=== PATIENT | male | born 1940 | race Caucasian/White ===

== ENCOUNTER 2018-06-02 11:32 | Inpatient (IN) | payer MEDICARE ==
[~2018-06-02] VITALS: Ht 177.8 cm; Wt 101.2 kg
--- NOTE | ~2018-06-02 | PN ---
[place], [place] PROGRESS NOTE NAME: VANNESA ARIAS UNIT #: [id number] ROOM: 317 DOCTOR: ADÁN AWAN MD BIRTHDATE: [birth year] DATE: 06/06/18 ADDENDUM: Resident note reviewed. Agree with observations, recommendations, and overall treatment plan. ADÁN AWAN MD CM:PNTRANS [id number] ADÁN AWAN MD 07/05/18 1412 DAGOBERTO DIEHL MIS.LLR
--- NOTE | ~2018-06-02 | DS ---
[place], [place] DISCHARGE SUMMARY [id number] UNIT #: [id number] ROOM: 317 DOCTOR: ADÁN AWAN MD BIRTHDATE: [birth year] DOS: 06/08/2018 CHIEF COMPLAINT: "This is a school building. I need to get my keys." HISTORY OF PRESENT ILLNESS: This is a 77-year-old white male who is a resident of [facility] in [place], [place]. The patient was admitted to the Behavioral Unit initially, but transferred to the medical floor following a rapid response for unresponsiveness. The patient subsequently was medically cleared and returned to his baseline medically, but continued to exhibit mood lability with sexually inappropriate behavior and sundowning. The patient was admitted to the U for further psychiatric stabilization. SUMMARY OF HOSPITAL COURSE: The patient was admitted where he was continued on his Exelon patch 13.3 mg a day, Celexa 20 mg a day to decrease libido, and Risperdal 1 mg 3 times a day. Namenda was also maintained at 10 mg twice daily, Seroquel was discontinued as a redundant medicine, and he maintained these medicines during his stay. He exhibited some minor sundowning, but overall there was a steady and gradual trend toward improvement to where he would occasionally make a sexually inappropriate comment, but did not make any significant profane driven comments nor was he touchy feely to any of the patients or staff. The patient had improved to the point where he was pleasant and cooperative. He is not showing signs of sedation, somnolence, extrapyramidal symptoms, or tardive dyskinesia. He returned then back to [facility]. MENTAL STATUS UPON DISCHARGE: The patient is alert and oriented to person, not necessarily to place, certainly not time. Mood was euthymic. Affect appropriate. No nataliia, hypomania, or psychosis were noted. Short-term memory continued to be poor. FINAL DIAGNOSES AT THE TIME OF DISCHARGE: Intermittent explosive disorder, Alzheimer's dementia. PLAN: All of his prescriptions have been e-scribed to [facility]. At the time of discharge, he was medically and psychiatrically stable. I will be the treating psychiatrist upon his readmission to [facility] in [place]. [place], [place] DISCHARGE SUMMARY NAME: VANNESA ARIAS UNIT #: [id number] ROOM: [facility] DOCTOR: ADÁN AWAN MD BIRTHDATE: [birth year] ADÁN AWAN MD CM:MENA [id number] ADÁN AWAN MD 06/08/18 1202 interface
--- NOTE | ~2018-06-02 | WRIGHTHP ---
[place], [place] PATIENT HISTORY AND PHYSICAL EXAM NAME: VANNESA ARIAS UNIT #: [id number] ROOM: 317 DOCTOR: DARREL STATON CNP BIRTHDATE: [birth year] DOS: 06/03/2018 CHIEF COMPLAINT: "This is a school building. I need to get my keys". HISTORY OF PRESENT ILLNESS: This is a 77-year-old white male with a history of Alzheimer's dementia. He had recently been on the Behavioral Health Unit, but was transferred to the medical floor following a rapid response for unresponsiveness. The patient had been medically cleared following a return to baseline and it was decided to readmit him to the Behavioral Health Unit for further evaluation to rule out organic factors and to attempt to stabilize him on his medications. The patient has a history of intermittent explosive disorder. The patient will be encouraged to engage in individual and romero milieu activity. Fall and safety precautions will be followed and will plan to return the patient to the least restrictive environment once psychiatrically stable. PAST MEDICAL HISTORY: Positive for Alzheimer's dementia, benign prostatic hyperplasia, GERD, gout, hyperlipidemia, hypertension, schizoaffective disorder, seizure disorder, vitamin B12 deficiency, vitamin D deficiency. SOCIAL HISTORY: The patient does not drink alcohol. The patient does not smoke and does not use illicit drugs. STRENGTHS: The patient is ambulatory and has a positive support system. WEAKNESSES: Alzheimer, dementia, and poor coping skills. MENTAL STATUS EXAMINATION: The patient is alert and oriented to self only. He was pleasant and cooperative with me. No overt nataliia or hypomania noted. No delusions or paranoia noted. No psychotic symptoms noted. No auditory or visual hallucinations noted. The patient's mood was somewhat labile. He became a bit agitated as he was wanting to look for his car keys and get his car; however, he was able to be easily redirected. His speech was clear. His eye contact was good. His insight and judgment are poor. DIAGNOSES: Alzheimer, dementia, and intermittent explosive disorder. PLAN: To continue the Exelon 13.3 mg patch daily, Celexa 20 mg daily, risperidone 1 mg 3 times a day, Namenda 10 mg twice a day. We will discontinue Seroquel 25 mg 3 times a day. We will continue to monitor the patient's behaviors and how he tolerates the medication. We will continue to encourage the patient to engage in individual and romero milieu activity. We will continue fall and safety precautions. Plan is to return the patient to the least restrictive environment once he is considered psychiatrically stable. [place], [place] PATIENT HISTORY AND PHYSICAL EXAM NAME: VANNESA ARIAS UNIT #: [id number] ROOM: [facility] DOCTOR: DARREL STATON CNP BIRTHDATE: [birth year] Darrel Staton CNP CM:HISPHYS:PATIENT HISTORY AND PHYSICAL EXAMINATION [id number] DARREL STATON CNP 06/03/18 1426 interface
--- NOTE | ~2018-06-02 | PR ---
[place], [place] PROGRESS NOTE NAME: VANNESA ARIAS UNIT #: [id number] ROOM: 317 DOCTOR: ADÁN AWAN MD BIRTHDATE: [birth year] DOS: 06/05/2018 CHIEF COMPLAINT: "Oh, breakfast was really good, thank you." SUMMARY OF THE VISIT: The patient was interviewed in the dining area where he had already eaten his breakfast. He was superficially bright and pleasant and offered no complaints. Nurses report that he continues to have episodes of inappropriate behavior; most occur later in the day. He outwardly is tolerating the current medication regimen well without sedation, somnolence, extrapyramidal symptoms or tardive dyskinesia. MENTAL STATUS: He is alert and oriented to person, possibly place, not to time. Mood does seem to be more euthymic this morning. Affect is more appropriate. There is no nataliia or hypomania and no gross psychosis. Short term memory is problematic. PLAN: I will continue his current psychotropic regimen, monitor for risk, benefit, engage in individual and romero milieu activity, returning to the least restrictive environment when psychiatrically stable. ADÁN AWAN MD CM:PNTRANS [phone] ADÁN AWAN MD 06/06/18 0034 interface
--- NOTE | ~2018-06-02 | PR ---
[place], [place] PROGRESS NOTE NAME: VANNESA ARIAS UNIT #: [id number] ROOM: 317 DOCTOR: GRECIA LY DO BIRTHDATE: [birth year] DOS: 06/06/2018 PSYCHIATRIC PROGRESS NOTE CHIEF COMPLAINT: "Good morning." SUMMARY OF VISIT: The patient is interviewed while sitting in the dining argueta. He states that his breakfast was decent and he had edwards and eggs; however, he states he would like some help finding his jacket. He mentioned that he had his jacket this morning, but not sure where it is now. Per nursing staff, the patient is sexually inappropriate to staff at times. The patient also got up around 10:00 p.m. last night, saying he wanted some popcorn, over although he slept about 6 hours. PLAN: Continue current medication regimen. Continue to monitor and support, engage in individual and romero milieu activity, returning then to the least restrictive environment when psychiatrically stable. Grecai Ly, DO ADÁN AWAN MD CM:CHUCKY [phone] GRECIA LY DO 06/07/18 0621 interface
--- NOTE | ~2018-06-02 | PN ---
[place], [place] PROGRESS NOTE NAME: VANNESA ARIAS UNIT #: [id number] ROOM: 317 DOCTOR: ADÁN AWAN MD BIRTHDATE: [birth year] DATE: 06/07/18 ADDENDUM: Resident note reviewed. Agree with observations, recommendations, and overall treatment plan. ADÁN AWAN MD CM:PNTRANS [id number] ADÁN AWAN MD 07/05/18 1412 DAGOBERTO DIEHL MIS.LLR
--- NOTE | ~2018-06-02 | PR ---
[place], [place] PROGRESS NOTE NAME: VANNESA ARIAS UNIT #: [id number] ROOM: 317 DOCTOR: DARREL STATON CNP BIRTHDATE: [birth year] DOS: 06/04/2018 CHIEF COMPLAINT: "Who are you." SUMMARY OF THE VISIT: The patient was interviewed as he lie in his bed. The patient verbalizes minimally with me. He does report that he slept well last night and that he has a good appetite; however, he does not remember if he had lunch or not. HISTORY OF PRESENT ILLNESS: Staff reports that the patient was exhibiting some increased behaviors this morning and was given a p.r.n. Ativan, which was effective and tolerated well. MENTAL STATUS EXAMINATION: The patient is alert and oriented to himself. He was pleasant with me easily redirected. No overt nataliia or hypomania noted. No delusions or paranoia noted. No psychotic symptoms noted. No auditory or visual hallucinations noted. His mood was calm. No agitation or irritability noted at this time. His affect was appropriate. His insight and judgment are poor. PLAN: We will continue the patient's medications as prescribed. We will continue to monitor and support the patient. We will continue to encourage the patient to engage in individual and romero milieu activity. Continue fall and safety precautions. Plan is to return to the patient to the least restrictive environment once he is considered psychiatrically stable. Darrel Staton CNP CM:PNTRANS [phone] DARREL STATON CNP 06/05/18 0339 interface
--- NOTE | ~2018-06-02 | PR ---
[place], [place] PROGRESS NOTE NAME: VANNESA ARIAS UNIT #: [id number] ROOM: 317 DOCTOR: GRECIA LY DO BIRTHDATE: [birth year] DOS: 06/07/2018 PSYCHIATRIC PROGRESS NOTE CHIEF COMPLAINT: "Morning. I am in [place]." SUMMARY OF VISIT: The patient is interviewed while sitting in the dining argueta. When asked if he slept well, he states I think I did. The patient states he does not need anything right now, but he mentioned he denies and realized he was in [place]. He thought he was in [place]. Per nursing staff, the patient slept about 6-7 hours. He did exhibit some anxiety episode yesterday with fidgeting and scratching his skin, however, he was able to be redirected by staff. He did get an episode of excitement overnight when another resident was singing in the hallway; however, he was able to be redirected and did not exhibit an inappropriate sexual behavior to staff members. MENTAL STATUS EXAMINATION: He is alert and oriented to person, possibly place, not to time. Mood is more euthymic. Affect is more appropriate. There is no nataliia or hypomania or gross psychosis. Short-term memory is poor. PLAN: Continue current medication regimen. We will monitor and support, engage in individual and romero milieu activity, returning then to the least restrictive environment when psychiatrically stable. Grecia Ly, DO ADÁN AWAN MD CM:PNTRANS [id number] GRECIA LY DO 06/07/18 1611 interface
[~2018-06-02 11:32] MED LIST: ASPIRIN CHEWABL81 MG PO; ATIVAN1 MG IM; ATIVAN1 MG PO; CELEXA20 MG PO; DILTIAZEM HCL30 MG PO; EXELON13.3 MG/21 TD; FLOMAX0.4 MG PO; GEODON20 MG PO; MAALOX ADVANCE355 M1 PO; MEMANTINE HCL E28 MG PO; MILK OF MA400 MG/5 M PO; NAMENDA10 MG PO; NITROSTAT0.4 MG SL; OMEPRAZOLE20 M2 PO; PHARMASSURE FO0.8 MG PO; PHARMASSURE VI100 MG PO; REMEDY CALAZIM113 G1 T; RISPERDAL0.5 MG PO; RISPERDAL1 M1 PO; SEROQUEL25 MG PO; TYLENOL325 M2 PO; VITAMIN B-6250 MG PO; VITAMIN D32000 UNI1 PO; ZOCOR40 MG PO
--- NOTE | 2018-06-02 16:58 | NUR ---
FRANKLINVANNESA OHARA a 77 year old M admitted via wheel chair from the ADMITTING as a voluntary admission. Arrived on unit at 1658. ALLERGIES: NKA. Vital signs are: 97.6-94-18 127/86. The client signed the following forms with stated understanding: Authorization For The Release of Medical Information, Clothing List, Consent to Voluntary Admission and Hospitalization, Consent and Release Forms/Receipt of Rights, Acknowledgement of Advance Directive Information, Behavioral Health Consent Form, and Informed Consent of Medications. Admitted under the services of Dr. LV BRADLEYADÁN. A search was conducted and hazardous articles were removed. Client was oriented to the unit. MERT FARR
[2018-06-02 17:08] VITALS: BP 127/86
--- NOTE | 2018-06-02 17:45 | NUR ---
DR. OH NOTIFIED OF NEW ADMISSION, MEDICATIONS AND DIAGNOSIS UPDATED FOR REVIEW. PATIENT WILL BE UNDER THE CARE OF DR. BOJORQUEZ.
--- NOTE | 2018-06-02 18:15 | NUR ---
MERT GERMAIN UPDATED ON PT ADMISSION
[2018-06-02 20:00] VITALS: BP 135/67
--- NOTE | 2018-06-03 04:05 | NUR ---
P-CONFUSION, ST/LT MEMORY DEFICITS I-ASSESS ORIENTATION, REDIRECT AND REORIENT NEEDED. PROVIDE 1:1 FOR PATIENT TO VOICE FEELINGS. ENCOURAGE MEDICATION COMPLIANCE. R-PATIENT IS ALERT AND ORIENTED TO PERSON AND PLACE WITH CONFUSION. STATED TO THIS NURSE THAT IS WAS DECEMBER OR JANUARY AND VANNESSA WAS PRESIDENT, PT RECEPTIVE TO REALITY ORIENTATION WHEN PRESENTED FOR SHORT PERIODS. PT CALM, COOPERATIVE, AND INTERACTIVE WITH PEERS AND STAFF. MEDICATION COMPLIANT WITHOUT DIFFICULTY AFTER REVIEW. DENIES SI/HI AND HALLUCINATIONS, NO NOTED RESPONDING TO INTERNAL STIMULI. NO PARANOIA/DELUSIONS OBSERVED. COMPLIANT WITH HANDS ON CARE WITHOUT DIFFICULTY. NO PHYSICAL COMPLAINTS NOTED. PATIENT CURRENTLY LAYING DOWN WITH EYES CLOSED. RESPIRATIONS EASY AND REGULAR, NO SIGNS OR SYMPTOMS OF DISTRESS NOTED. P-CONTINUE TO ASSESS ORIENTATION, MOOD, AND BEHAVIOR. PROVIDE REORIENTATION AND REDIRECT NEEDED. PROVIDE 1:1 TO VOICE FEELINGS. ENCOURAGE MEDICATION COMPLIANCE. MAINTAIN Q 15 MIN CHECKS.
--- NOTE | 2018-06-03 04:29 | NUR ---
24 HOUR CHART CHECK COMPLETED.
--- NOTE | 2018-06-03 05:57 | NUR ---
PATIENT OBSERVED ON Q 15 MIN CHECKS TO HAVE SLEPT APPROX 7 HOURS WITH X3 AWAKENINGS TO USE THE RESTROOM WITH ASSISTANCE OF STAFF, NO SIGNS OR SYMPTOMS OF DISTRESS NOTED.
[2018-06-03 07:27] LABS: BASO % 0.3 % (0.0-1.0); EOS # 0.3 10*3/uL (0.0-0.4); EOS % 5.2 % (1.0-4.0); HEMATOCRIT 40.8 % (42.0-52.0); HEMOGLOBIN 13.6 g/dl (14.0-18.0); LYMPH # 1.6 10*3/uL (1.3-4.4); LYMPH % 25.6 % (27.0-41.0); MEAN CELL VOLUME 97.6 fl (80.0-94.0); MEAN CORPUSCULAR HGB 32.5 pg (27.0-31.0); MEAN CORPUSCULAR HGB CONC 33.3 g/dl (33.0-37.0); MONO # 0.9 10*3/uL (0.1-1.0); MONO % 13.4 % (3.0-9.0); NEUT # 3.5 10*3/uL (2.3-7.9); NEUT % 55.2 % (47.0-73.0); PLATELET COUNT AUTOMATED 144 10*3/uL (130-400); RED BLOOD COUNT 4.18 10*6/uL (4.50-5.90); WHITE BLOOD COUNT 6.3 10*3/uL (4.8-10.8)
[2018-06-03 07:56] VITALS: BP 135/67
[2018-06-03 08:02] LABS: BUN 30 mg/dl (7-24); CHLORIDE 104 mmol/L (98-107); POTASSIUM 4.2 mmol/L (3.5-5.1); SGOT/AST 17 IU/L (3-35); SODIUM 138 mmol/L (136-145)
[2018-06-03 08:13] LABS: ALKALINE PHOSPHATASE 107 U/L (45-117); CHOLESTEROL 108 mg/dL (<200); CREATININE 1.37 mg/dL (0.70-1.30); HDL CHOLESTEROL 56 mg/dl (40-60); LDL CHOLESTEROL 40 mg/dL (9-159); SGPT/ALT 22 U/L (12-78); TRIGLYCERIDES 60 mg/dl (<150); VLDL CHOLESTEROL 12 mg/dL (6-40)
[2018-06-03 08:49] LABS: VITAMIN D, 25-HYDROXY 50.3 ng/mL (30-100)
--- NOTE | 2018-06-03 10:30 | NUR ---
DR RANDOLPH ON UNIT TO SEE PATIENT
--- NOTE | 2018-06-03 11:47 | NUR ---
AM GROUP/EXERCISES/BINGO PT ATTENDED AND PARTICIPATED TO BEST OF ABILITY. PT KEPT ASKING THINGS LIKE "DO YOU KNOW WHERE MY WALLET IS, AND MY KEYS?" THIS STAFF REMINDED PT HIS ITEMS ARE IN A LOCKER AND HE IS SAFE AT THE HOSPITAL . PT WOULD SIT BACK DOWN TO PARTICIPATE AND 5-10 MINUTES LATER WOULD ASK THE SAME QUESTION. PT DID NOT BECOME AGGRESSIVE OR SEXUALLY INAPPROPRIATE AT THIS TIME. PT WILL COTNINUE TO ATTEND AND PARTICIPATE IN FUTURE GROUP SESSIONS.
--- NOTE | 2018-06-03 14:09 | NUR ---
client has not been gone 30 days from his last admission, we will use his psychosocial on his last chart.
--- NOTE | 2018-06-03 15:00 | NUR ---
P-ANXIETY, CONFUSION. PATIENT ALERT WITH CONFUSION. PATIENT WITH SHORT TERM AND [facility]DC MEMEORY DEFICITS. PATIENT WITH NO SUICIDAL OR HOMICIDAL IDEATIONS. PATIENT WITH NO HALLUCINATIONS OR DELUSIONS. PATIENT WITH EPISODES OF INCREASED ANXIOUS WITH DIFFICULTY WITH REDIRECTION. I-REDIRECTION WITH 1:1 THERAPEUTIC INTERVENTIONS AND PRESENT REALTIY. EDUCATE AND ENCOURAGE MEDICATION COMPLIANCE. R-REDIRECTION WITH ATTEMPT OF 1:1 THERAPEUTIC INTERVENTIONS INEFFECTIVE DUE TO COGNITION. PATIENT MEDICATION COMPLIANCE. PATIENT REQUESTING CAR KEYS AND VOICING THAT HE WANTED TO HOME THROUGHOUT SHIFT. MEDICATED WITH ATIVAN 1MG PO FOR INCREASED AGITATION AND DISRUPTIVE WITH PEERS PRESENT. MEDICATION WITH SOMEWHAT EFFECTIVE RESULTS. PATIENT UP INTERMITTENTLY AMBULATING ON UNIT WITHOUT ASSISTIVE DEVICE AND WITH ASSIST X 1 OF NURSING STAFF. PATIENT CONTINENT AND INCONTINENT OF BLADDER. P-CONTINUE TO ENCOURAGE MEDICATION COMPLIANCE, ENCOURAGE GROUP THERAPY WHILE AWAKE, CONTINUE TO ENCOURAGE REALITY PRESENTATION
--- NOTE | 2018-06-03 16:25 | NUR ---
PM GROUP/LEISURE SKILLS PT UNABLE TO ATTEND DUE TO LEVELS OF CONFUSION. PT WILL CONTINUE TO BE ENCOURAGED TO ATTEND AND PARTICIPATE IN FUTURE GROUP SESSIONS.
--- NOTE | 2018-06-03 16:45 | NUR ---
Shift chart check completed.
[2018-06-03 20:15] VITALS: BP 125/68
--- NOTE | 2018-06-04 01:04 | NUR ---
P-CONFUSION, ANXIOUS, PT YELLING OUT "I NEED TO GET MY KEYS, IM GOING HOME" I-ASSESS ORIENTATION, REDIRECT AND REORIENT NEEDED. PROVIDE 1:1 WITH DIVERSION TECHNIQUES TO HELP CALM PATIENT. ENCOURAGE MEDICATION COMPLIANCE. R-PATIENT IS ALERT AND ORIENTED TO PERSON WITH CONFUSION. PT MINIMALLY RECEPTIVE TO REALITY ORIENTATION WHEN PRESENTED, PT STATES "WELL I DONT KNOW, IM NOT STAYING HERE, I JUST NEED TO GET MY KEYS AND HEAD HOME, RUT BEEN A HOSPITAL FOR 4 TO 5 YEARS AND ITS NEVER BEEN LIKE THIS". DIVERSION TECHNIQUES (SNACK, 1:1, DRINK, TOILETING) EFFECTIVE IN CALMING PATIENT. PT MEDICATION COMPLIANT WITHOUT DIFFICULTY, UNABLE TO EDUCATE DUE TO COGNITION. PT DENIES SI/HI AND HALLUCINATIONS, NO NOTED RESPONDING TO INTERNAL STIMULI. NO PARANOIA/DELUSIONS OBSERVED. NO PHYSICAL COMPLAINTS VOICED. COMPLIANT WITH HANDS ON CARE WITHOUT DIFFICULTY. PATIENT CURRENTLY LAYING DOWN WITH EYES CLOSED. RESPIRATIONS EASY AND REGULAR, NO SIGNS OR SYMPTOMS OF DISTRESS NOTED. P-CONTINUE TO ASSESS ORIENTATION, MOOD, AND BEHAVIOR. PROVIDE REORIENTATION AND REDIRECT NEEDED. PROVIDE 1:1 TO VOICE FEELINGS. ENCOURAGE MEDICATION COMPLIANCE. MAINTAIN Q 15 MIN CHECKS.
--- NOTE | 2018-06-04 05:10 | NUR ---
24 HOUR CHART CHECK COMPLETED.
--- NOTE | 2018-06-04 05:52 | NUR ---
PATIENT OBSERVED ON Q 15 MIN SAFETY CHECKS TO HAVE SLEPT APPROX 6 HOURS WITH NO AWAKENINGS OR SIGNS AND SYMPTOMS OF DISTRESS NOTED.
--- NOTE | 2018-06-04 05:53 | NUR ---
PATIENT OBSERVED ON Q 15 MIN CHECKS TO HAVE SLEPT APPROX 5 HOURS WITH X3 AWAKENINGS TO USE THE RESTROOM WITH ASSISTANCE OR BECAUSE OF NOTED CONFUSION STATING "TIME FOR ME TO GO HOME", PATIENT EASILY REDIRECTED BACK TO BED WITHOUT DIFFICULTY. NO SIGNS OR SYMPTOMS OF DISTRESS NOTED.
[2018-06-04 07:45] VITALS: BP 122/64
--- NOTE | 2018-06-04 10:30 | NUR ---
P-ANXIETY, CONFUSION. PATIENT ALERT WITH CONFUSION. PATIENT WITH SHORT TERM AND SENIOR LIVING MEMEORY DEFICITS. PATIENT WITH NO SUICIDAL OR HOMICIDAL IDEATIONS. PATIENT WITH NO HALLUCINATIONS OR DELUSIONS. PATIENT WITH EPISODES OF INCREASED ANXIETY AND PACING HALLWAY WITH DIFFICULTY WITH REDIRECTION. I-REDIRECTION WITH 1:1 THERAPEUTIC INTERVENTIONS AND PRESENT REALTIY. EDUCATE AND ENCOURAGE MEDICATION COMPLIANCE. R-REDIRECTION WITH ATTEMPT OF 1:1 THERAPEUTIC INTERVENTIONS INEFFECTIVE DUE TO COGNITION. PATIENT MEDICATION COMPLIANCE. PATIENT REQUESTING CAR KEYS AND VOICING THAT HE WANTED TO HOME THROUGHOUT SHIFT. MEDICATED WITH ATIVAN 1MG PO FOR INCREASED AGITATION AND DISRUPTIVE WITH PEERS PRESENT. MEDICATION WITH EFFECTIVE RESULTS AT THIS TIME. PATIENT UP INTERMITTENTLY AMBULATING ON UNIT WITHOUT ASSISTIVE DEVICE AND WITH ASSIST X 1 OF NURSING STAFF. PATIENT CONTINENT AND INCONTINENT OF BLADDER. P-CONTINUE TO ENCOURAGE MEDICATION COMPLIANCE, ENCOURAGE GROUP THERAPY WHILE AWAKE, CONTINUE TO ENCOURAGE REALITY PRESENTATION
--- NOTE | 2018-06-04 10:40 | NUR ---
DR RANDOLPH ON UNIT TO SEE PATIENT
--- NOTE | 2018-06-04 16:42 | NUR ---
Shift chart check completed.
[2018-06-04 20:59] VITALS: BP 126/70
--- NOTE | 2018-06-05 00:18 | NUR ---
P-CONFUSION, ANXIOUS, PT YELLING OUT "YO" AND "I NEED TO GET TO THE KITCHEN". I-ASSESS ORIENTATION, REDIRECT AND REORIENT NEEDED. PROVIDE 1:1 WITH DIVERSION TECHNIQUES TO HELP CALM PATIENT. ENCOURAGE MEDICATION COMPLIANCE. R-PATIENT IS ALERT AND ORIENTED TO PERSON WITH CONFUSION. PT UNRECEPTIVE TO REALITY ORIENTATION WHEN PRESENTED, PT STATES "I KNOW WHERE IM AT AND IM GOING TO THE KITCHEN". PT BECOMES IRRITABLE UPON REDIRECTION, ATTEMPTED TO GRAB A STAFF MEMBERS ARM. DIVERSION TECHNIQUES (1:1, DRINK, TOILETING) INEFFECTIVE IN CALMING PATIENT, PT RECIEVED PRN ATIVAN 1MG PO ORDERED AT 2329. PT MEDICATION COMPLIANT WITHOUT DIFFICULTY, UNABLE TO EDUCATE DUE TO COGNITION. PT DENIES SI/HI AND HALLUCINATIONS, NO NOTED RESPONDING TO INTERNAL STIMULI. NO PARANOIA/DELUSIONS OBSERVED. NO PHYSICAL COMPLAINTS VOICED. COMPLIANT WITH HANDS ON CARE WITHOUT DIFFICULTY. PATIENT CURRENTLY LAYING BACK WITH EYES CLOSED IN MAITE CHAIR NEAR NURSES STATION DUE TO LACK OF SAFETY AWARENESS, RESPIRATIONS EASY AND REGULAR, NO SIGNS OR SYMPTOMS OF DISTRESS NOTED. P-CONTINUE TO ASSESS ORIENTATION, MOOD, AND BEHAVIOR. PROVIDE REORIENTATION AND REDIRECT NEEDED. PROVIDE 1:1 TO VOICE FEELINGS. ENCOURAGE MEDICATION COMPLIANCE. MAINTAIN Q 15 MIN CHECKS.
--- NOTE | 2018-06-05 05:00 | NUR ---
24 HOUR CHART CHECK COMPLETED.
--- NOTE | 2018-06-05 06:05 | NUR ---
PATIENT OBSERVED ON Q 15 MIN CHECKS TO HAVE SLEPT APPROX 4 HOURS WITH NO AWAKENINGS OR SIGNS AND SYMPTOMS OF DISTRESS NOTED.
[2018-06-05 07:58] VITALS: BP 167/70
--- NOTE | 2018-06-05 08:05 | NUR ---
PT SITTING IN DAY ROOM, EATING BREAKFAST AT THIS TIME.
--- NOTE | 2018-06-05 08:46 | NUR ---
Shift chart check completed.
--- NOTE | 2018-06-05 09:14 | NUR ---
Nursing referral received and Occupational Therapy referral also received. Thank you. Pamela Naylor OTR/l
--- NOTE | 2018-06-05 09:22 | NUR ---
PHYSICAL THERAPY Nursing screen received. PT orders also received. Thank you. Deja Hutton,PT
--- NOTE | 2018-06-05 10:15 | NUR ---
P-PT ALERT AND ORIENTED TO SELF. STATES THE YEAR WAS 2009. STATES THE PRESIDENT WAS LAWRENCE AND THEN OBAMA. PT STATES "WHO WOULD HAVE THOUGHT THAT" WHEN TOLD THE PRESIDENT WAS TRUMP. ABLE TO STATE HE IS "IN THE HOSPITAL" BUT STATES THIS IS [place]. REORIENTED TO PLACE WITH MIN-MOD EFFECT FOR SHORT PERIOD OF TIME. ST/LT MEMORY DEFICITS NOTED UPON INTERACTIONS. PT UNABLE TO RETAIN ANY NEW INFORMATION DUE TO COGNITION. UNABLE TO PROVIDE MEDICATION EDUCATION. PT WANDERS ABOUT UNIT CONFUSED. I-FREQUENTLY REORIENTED T/O THE SHIFT AND NEEDED. REDIRECTION IF NEEDED. ALL NEEDS AND WANTS ANTICIPATED BY STAFF. ELOPEMENT/WANDER PRECAUTIONS MAINTAINED. R-PT REMAINS PLEASANTLY CONFUSED THIS MORNING. APPETITE GOOD FOR BREAKFAST, ATE 100% AND TAKING PO FLUIDS WELL. NAPS INTERMITTENTLY T/O THE MORNING. MEDICATION COMPLIANT WITHOUT DIFFICULTY. P-ENCOURAGE PT TO ATTEND AND PARTICIPATE IN GROUP THERAPY, REORIENT AND REDIRECT NEEDED, Q15 MIN CHECKS, ELOPEMENT/WANDER PRECAUTIONS MAINTAINED.
--- NOTE | 2018-06-05 11:54 | NUR ---
AM GROUP/CRAFTS/MUSIC PT CHOSE NOT TO ATTEND BUT REMAINED IN BED ENTIRE GROUP SESSION. PT WILL CONTINUE TO BE ENCOURAGED TO ATTEND AND PARTICIPATE IN FUTURE GROUP SESSIONS TO BEST OF PT ABILITY.
--- NOTE | 2018-06-05 14:39 | NUR ---
Clinical Updates faxed to [facility] Attn: Gaby. Spoke with Gaby and Advised of plans to discharge at the end of the week.
--- NOTE | 2018-06-05 15:31 | NUR ---
PER EDUARDO FROM [facility] IP APPROVED FOR 11 DAYS. NEXT REVIEW DATE 06/12. AUTH NUMBER [id number]
--- NOTE | 2018-06-05 15:44 | NUR ---
PM GROUP/MOVIE/LEISURE SKILLS PT ATTENDED FIRST 5 MINUTES OF GROUP THEN STATED "I NEED TO GO HOME" PT EXITED ACTIVITIES AND PACED PAULSON. PT DID NOT RETURN TO GROUP. PT WILL CONTINUE TO BE ENCOURAGED TO ATTEND AN DPARTICIPATE IN FUTURE GROUP SESSIONS TO BEST OF PT ABILITY.
--- NOTE | 2018-06-05 16:44 | NUR ---
Treatment Plan meeting with Dr. Grubbs, RN, AT and [facility]. Plan for discharge at the end of the week. Pt. to return to [facility].
[2018-06-05 20:12] VITALS: BP 134/84
--- NOTE | 2018-06-05 23:55 | NUR ---
P-ANXIETY, CONFUSION. PATIENT ALERT WITH CONFUSION. PATIENT WITH SHORT TERM AND MCC MEMEORY DEFICITS. PATIENT WITH NO SUICIDAL OR HOMICIDAL IDEATIONS. PATIENT WITH NO HALLUCINATIONS OR DELUSIONS. PATIENT WITH EPISODES OF INCREASED ANXIETY AND REDIRECTABLE AT THIS TIME. I-REDIRECTION WITH 1:1 THERAPEUTIC INTERVENTIONS AND PRESENT REALTIY. EDUCATE AND ENCOURAGE MEDICATION COMPLIANCE. R-REDIRECTION WITH ATTEMPT OF 1:1 THERAPEUTIC INTERVENTIONS EFFECTIVE FOR SHORT PERIODS OF TIME DUE TO COGNITION. PATIENT MEDICATION COMPLIANCE. NOURISHMENT, FLUIDS, AND TOILETING PROVIDED. PATIENT CONTINENT AND INCONTINENT OF BLADDER. P-CONTINUE TO ENCOURAGE MEDICATION COMPLIANCE, ENCOURAGE GROUP THERAPY WHILE AWAKE, CONTINUE TO ENCOURAGE REALITY PRESENTATION
--- NOTE | 2018-06-06 06:25 | NUR ---
PT SLEPT APPROXIMATELY 6 HOURS THIS SHIFT. Q15 MINUTE SAFETY CHECKS MAINTAINED.
[2018-06-06 07:50] VITALS: BP 155/72
--- NOTE | 2018-06-06 09:00 | NUR ---
Treatment Plan meeting with Dr. Grubbs, RN, AT and [facility]. Plan for discharge at the end of the week. Pt. is LTC at [facility] and will return at discharge.
--- NOTE | 2018-06-06 11:48 | NUR ---
AM GROUP/ART AND COLOR THERAPY PT WAS PRESENT FOR GROUP AND PARTICIPATED LIMITEDLY BY READING THE NEWSPAPER. PT WAS EXIT SEEKING AND WANTING TO FIND HIS WALLET AND JOIN HIS FAMILY STATING, "WE ARE ON VACATION HERE IN [place], DON'T BELIEVE ME, COME ON, I'LL SHOW YOU." PT WAS REDIRECTABLE FOR A FEW MINUTES AND AGAIN SEARCHING FOR HIS WALLET. PT EXHIBITED NO AGITATION DURING GROUP OR ANY SEXUAL INAPPROPRIATENESS.
--- NOTE | 2018-06-06 12:53 | NUR ---
P-PT ALERT AND ORIENTED TO SELF. STATES THE YEAR WAS 2016. STATES THE PRESIDENT WAS LAWRENCE BUT DOESN'T WHO THE CURRENT PRESIDENT IS. ABLE TO STATE HE IS "IN THE HOSPITAL" BUT IS UNABLE TO IDENTIFY WHICH ONE. ST/LT MEMORY DEFICITS NOTED UPON INTERACTIONS. PT UNABLE TO RETAIN ANY NEW INFORMATION. PT WANDERS ABOUT UNIT CONFUSED. I-FREQUENTLY REORIENTED T/O THE SHIFT AND NEEDED. REDIRECTION IF NEEDED. ALL NEEDS AND WANTS ANTICIPATED BY STAFF. ELOPEMENT/WANDER PRECAUTIONS MAINTAINED. UNABLE TO PROVIDE MEDICATION EDUCATION DUE TO COGNITION. R-PT REMAINS PLEASANTLY CONFUSED THIS MORNING. APPETITE GOOD FOR BREAKFAST, ATE 100% AND TAKING PO FLUIDS WELL. NAPS INTERMITTENTLY T/O THE MORNING. MEDICATION COMPLIANT WITHOUT DIFFICULTY. P-ENCOURAGE PT TO ATTEND AND PARTICIPATE IN GROUP THERAPY, REORIENT AND REDIRECT NEEDED, Q15 MIN CHECKS, ELOPEMENT/WANDER PRECAUTIONS MAINTAINED.
--- NOTE | 2018-06-06 15:39 | NUR ---
PM GROUP/MOVIE AND LEISURE INTERESTS PT ATTENDED GROUP AND PARTICIPATED BY WATCHING THE MOVIE. PT EXHIBITED NO AGITATION OR AGGRESSION DURING GROUP.
--- NOTE | 2018-06-06 17:36 | NUR ---
Shift chart check completed.
[2018-06-06 20:00] VITALS: BP 127/68
--- NOTE | 2018-06-06 20:41 | NUR ---
EVENING/MUSIC/GAMES PT DID NOT ATTEND GROUP DUE TO LEVELS OF [id number] AND EXIT SEEKING. PT WILL CONTINUE TO BE ENCOURAGED TO ATTEND AN DPARTICIPATE IN FUTURE GROUP SESSIONS.
--- NOTE | 2018-06-06 21:48 | NUR ---
P-ANXIETY, CONFUSION. PATIENT ALERT WITH CONFUSION. PATIENT WITH SHORT TERM AND PENITENTIARY MEMEORY DEFICITS. PATIENT WITH NO SUICIDAL OR HOMICIDAL IDEATIONS. PATIENT WITH NO HALLUCINATIONS OR DELUSIONS. PATIENT WITH EPISODES OF INCREASED ANXIETY AND REDIRECTABLE AT THIS TIMES. PATIENT WITH FREQUENT REDIRECTION TO ASSIST WITH EPISODES OF ANXIETY I-REDIRECTION WITH 1:1 THERAPEUTIC INTERVENTIONS AND PRESENT REALTIY. EDUCATE AND ENCOURAGE MEDICATION COMPLIANCE. R-REDIRECTION WITH ATTEMPT OF 1:1 THERAPEUTIC INTERVENTIONS EFFECTIVE FOR SHORT PERIODS OF TIME DUE TO COGNITION. PATIENT MEDICATION COMPLIANT. NOURISHMENT, FLUIDS, AND TOILETING PROVIDED. PATIENT CONTINENT AND INCONTINENT OF BOWEL AND BLADDER. PATIENT WITH INTERACTING WITH PEERS INTERMITTENTLY THROUGHOUT SHIFT. PATIENT FIDGETING, SCRATCHING, AND DIGGING AT SKIN. PATIENT REDIRECTED AND ENCOURAGED LEAVE SKIN INTACT. P-CONTINUE TO ENCOURAGE MEDICATION COMPLIANCE, CONTINUE TO ENCOURAGE REALITY PRESENTATION, ENCOURAGE GROUP THERAPY WHILE AWAKE.
--- NOTE | 2018-06-07 00:28 | NUR ---
24 HR chart check completed.
--- NOTE | 2018-06-07 06:00 | NUR ---
PATIENT SLEPT 6-7 HOURS THROUGHOUT SHIFT. Q 15 MINUTE CHECKS MAINTAINED
--- NOTE | 2018-06-07 08:15 | NUR ---
Treatment Plan meeting with Dr. Grubbs, RN, AT and Knitter Hand. Plan for discharge . Pt. to return to [facility].
[2018-06-07 08:18] VITALS: BP 164/72
--- NOTE | 2018-06-07 08:22 | NUR ---
PT AWAKE, ALERT, AND VERBAL AT THIS TIME. RESPS EASY AND EVEN ON ROOM AIR.
--- NOTE | 2018-06-07 11:51 | NUR ---
AM GROUP PT ATTENDED MORNING GROUP THERAPY AND PARTICIPATED BY READING THE NEWSPAPER AND THEN OBSERVING PEERS. PT IS CONFUSED AND WAS SEARCHING FOR HIS JACKET TO GET HIS WALLET. PT IS REDIRECTABLE FOR SHORT PERIODS. PT EXHIBITED NO AGITATION OR AGGRESSION DURING GROUP.
--- NOTE | 2018-06-07 12:02 | NUR ---
P-PT ALERT AND ORIENTED TO SELF. ABLE TO STATE HE IS "IN THE HOSPITAL" BUT IS UNABLE TO IDENTIFY WHICH ONE. CONFUSED TO PLACE AND TIME. ST/LT MEMORY DEFICITS NOTED UPON INTERACTIONS. PT UNABLE TO RETAIN ANY NEW INFORMATION. PT WANDERS ABOUT UNIT CONFUSED. I-FREQUENTLY REORIENTED T/O THE SHIFT AND NEEDED. REDIRECTION IF NEEDED. ALL NEEDS AND WANTS ANTICIPATED BY STAFF. ELOPEMENT/WANDER PRECAUTIONS MAINTAINED. UNABLE TO PROVIDE MEDICATION EDUCATION DUE TO COGNITION. R-PT REMAINS PLEASANTLY CONFUSED THIS MORNING. APPETITE GOOD FOR BREAKFAST AND TAKING PO FLUIDS WELL. NAPS INTERMITTENTLY T/O THE MORNING. MEDICATION COMPLIANT WITHOUT DIFFICULTY. P-ENCOURAGE PT TO ATTEND AND PARTICIPATE IN GROUP THERAPY, REORIENT AND REDIRECT NEEDED, Q15 MIN CHECKS, ELOPEMENT/WANDER PRECAUTIONS MAINTAINED.
--- NOTE | 2018-06-07 12:28 | NUR ---
Voice Message Left for Gaby at [facility] to notify of Plans to discharge Patient tommorow.
--- NOTE | 2018-06-07 13:08 | NUR ---
Spoke with Patient daughter/POA and notified her of Discharge tommorow with return to [facility]. Daughter receptive and voiced no questions or concerns.
--- NOTE | 2018-06-07 15:00 | NUR ---
PT AMBULATING ABOUT UNIT CONFUSED. PT OBSERVED PUSHING ON DOORS AND KEYPADS. REQUIRES FREQUENT REDIRECTION PERIODICALLY T/O THE SHIFT. ELOPEMENT/WANDER PRECAUTIONS MAINTAINED.
--- NOTE | 2018-06-07 15:02 | NUR ---
PT SITTING IN HALLWAY WITH RN AT THIS TIME. CONFUSED AND ASKING STAFF "WHAT'S GOING ON?" REORIENTED WITH MINIMAL EFFECT.
--- NOTE | 2018-06-07 15:06 | NUR ---
PHYSICAL THERAPY PAtient with possible d/c tomorrow. Deja Hutton,PT
--- NOTE | 2018-06-07 15:17 | NUR ---
PM GROUP/WATERCOLORS PT WAS PRESENT FOR GROUP AND PARTICIPATED BY READING THE NEWSPAPER. PT BEGAN EXIT SEEKING AT 2:30 AND WAS REDIRECTABLE FOR SHORT PERIODS. PT WILL BE DISCHARGED FROM THE UNIT TOMORROW.
--- NOTE | 2018-06-07 15:20 | NUR ---
PHYSICAL THERAPY Patient evaluated on 3, full evaluation to follow. D/C PT after evaluation. PAtient to be discharged to prior facility tomorrow. Recommend PT at facility in order to return patient to PLOF. PAtient is moderate complexity via chart review, tests and evaluation: [id number]. Thank you for this referral. Deja Hutton,PT
--- NOTE | 2018-06-07 15:35 | NUR ---
Shift chart check completed.
--- NOTE | 2018-06-07 17:09 | NUR ---
PT INCREASINGLY MORE CONFUSED AND MILDLY AGITATED. ATTEMPTED TO RECLINE PT IN MAITE CHAIR FOR COMFORT. PT BECAME MORE RESTLESS. REQUEST MENTAL HEALTH WORKER TO WALK HALLWAY WITH PT. PT AMBULATING WITH ASSIST OF MENTAL HEALTH WORKER AT THIS TIME.
--- NOTE | 2018-06-07 18:55 | NUR ---
PT TOOK SHOWER THIS SHIFT. APPETITE GOOD FOR MEALS. HAD BM.
[2018-06-07 20:00] VITALS: BP 141/70
--- NOTE | 2018-06-07 21:16 | NUR ---
24 HR chart check completed.
--- NOTE | 2018-06-07 21:42 | NUR ---
P-CONFUSION/IRRITABLE I-REORIENT, REDIRECT, ADMINISTER MEDICATIONS, MONITOR SLEEP, MAINTAIN ELOPEMENT PRECAUTIONS R-PT IS ALERT TO PERSON, STATED THAT THE YEAR IS 2008 & HE IS IN [place]. UNRECEPTIVE TO REORIENTATION & IS IRRITABLE FOR BRIEF PERIODS. SHORT & STATE TESTED NURSING ASSISTANT DEFICITS. WAS AMBULATING INDEPENDENTLY AT THE BEGINNING OF THE SHIFT. GAIT DOES SEEM TO BE SLIGHTLY UNSTEADY THE EVENING PROGRESSED & AFTER HS MEDICATIONS. PT SAT IN A MAITE CHAIR & WAS ASSISTED TO BED BY STAFF. HAS MADE NO ATTEMPTS TO LEAVE THE UNIT. P-CONTINUE TO MONITOR & PROVIDE WITH PHYSICAL ASSISTANCE & EMOTIONAL SUPPORT NEEDED.
--- NOTE | 2018-06-08 06:00 | NUR ---
PT HAS SLEPT PAST 2130 FOR A TOTAL OF APPROX 6 HOURS. HAS BEEN UP & DOWN TO THE BATHROOM SEVERAL TIMES TO VOID.
--- NOTE | 2018-06-08 08:15 | NUR ---
Treatment Plan meeting with Dr. Grubbs, RN, AT and Personnel Representative. Plan for discharge today. Pt. to return to [facility]. Dr. Grubbs to follow at facility 1 x month and PRN and Primary care also followed up at facility 1 x month or PRN. Transportation arranged with [facility] to transport with [employer] Plant Engineer time 2:00 p.m. Family has been notified and is aware of discharge today.
[2018-06-08 08:52] VITALS: BP 159/85
[2018-06-08] MEDS ORDERED: MEMANTINE HCL10 MG PO (09:26)
[2018-06-08] MEDS ORDERED: RISPERIDONE1 MG PO (09:26)
[2018-06-08] MEDS ORDERED: EXELON13.3 MG/21 T (09:26)
[2018-06-08] MEDS ORDERED: CITALOPRAM20 MG PO (09:26)
--- NOTE | 2018-06-08 10:00 | NUR ---
DR HAAS ON UNIT TO ASSESS PATIENT AND INFORMED OF PATIENT BEING DISCHARGE.
--- NOTE | 2018-06-08 11:59 | NUR ---
NURSE TO NURSE REPORT GIVEN TO ABDULKADIR AT [facility].
--- NOTE | 2018-06-08 14:21 | NUR ---
LIFE TEAM PRESENT, PATIENT ASSISTED TO NIKI, ALL BELONGINGS GATHERED, DISCHARGE INSTRUCTIONS SENT OFF UNIT WITH PATIENT.
== END 2018-06-08 14:22 | DRG 883 ==
LOC: 3N 11:32
PROVIDERS: ADMIT Psychiatry & Neurology Psychiatry
DX: F63.81 Intermittent explosive disorder (principal); G30.9 Alzheimer's disease, unspecified; F02.80 Dementia in other diseases classified elsewhere, unspecified severity, without behavioral disturbance, psychotic disturbance, mood disturbance, and anxiety; F25.9 Schizoaffective disorder, unspecified; R56.9 Unspecified convulsions; K21.9 Gastro-esophageal reflux disease without esophagitis; E55.9 Vitamin D deficiency, unspecified; N40.0 Benign prostatic hyperplasia without lower urinary tract symptoms; E78.5 Hyperlipidemia, unspecified; M10.9 Gout, unspecified; E53.8 Deficiency of other specified B group vitamins; I11.0 Hypertensive heart disease with heart failure